=== PATIENT | female | born 1935 | race Caucasian/White ===

== ENCOUNTER 2018-08-19 18:16 | Inpatient (IN) | payer OTHER ==
[~2018-08-19] VITALS: Ht 165.1 cm; Wt 65.6 kg
--- NOTE | ~2018-08-19 | EKG ---
[address] [address] ELECTROCARDIOGRAM REPORT Name: ALANIS MICHAELS Room #: 457- ADM IN M.R.#: [id number] Admission: 08/19/18 Attend Phys: Nabil Linn Discharge: Date of : 33 Report #: [id number] THIS REPORT FOR: //name// [facility] Test Date: 2018-08-23 Test Time: 08:23:39 Pat Name: ALANIS MICHAELS Department: Room: [facility] Gender: F [employer]ing Machine Operator: Nell KEANE : 1935 Requested By: Nabil Linn Order Number: [id number] MD: Toribio Mcmillan Measurements Intervals [place] Rate: 138 P: NE: QRS: -34 QRSD: 136 T: -38 QT: 297 QTc: 450 Interpretive Statements Atrial flutter with 2:1 AV block Left ventricular hypertrophy Nonspecific T abnormalities, inferior leads No previous ECG available for comparison Electronically Signed On 08-23-2018 9:58:01 CDT by Toribio Mcmillan [email or web address] <ELECTRONICALLY SIGNED> By: Toribio Mcmillan MD 1058 2 2 Toribio Mcmillan MD /[email or web address]
--- NOTE | ~2018-08-19 | 2DMMODE ---
[facility] [address] [place] [address] 2 D/M-MODE ECHOCARDIOGRAM Name: XENIAALANIS Casarez Room #: 211-P ADM IN M.R.#: [id number] Admission: 08/19/18 Attend Phys: Nabil Snider Discharge: Date of : 33 Date of Service: 08/24/18 1606 Report #: [id number] THIS REPORT FOR: //name// APPROVED REPORT Study performed: 08/24/2018 15:13:56 EXAM: Comprehensive 2D, Doppler, and color-flow Echocardiogram Patient Location: Echo lab Room #: [facility] Status: routine BSA: 1.68 HR: 80 bpm BP: 109/46 mmHg Rhythm: NSR Other Information Study Quality: Adequate Technically limited study due to inability to position patient/breast implants. Indications Atrial Fibrillation 2D Dimensions RVDd: 30.56 mm IVSd: 12.46 (7-11mm) LVOT Diam: 20.08 (18-24mm) LVDd: 34.78 mm PWd: 12.81 (7-11mm) LVDs: 24.20 (25-40mm) Aortic Root: 34.85 mm Volumes Left Atrial Volume (Systole) Single Plane 4CH: 38.03 mL Single Plane 2CH: 55.88 mL Aortic Valve AoV Peak Deandre.: 1.28 m/s AO Peak Gr.: 6.54 mmHg LVOT Max P.24 mmHg LVOT Max V: 1.03 m/s RUSSELL Vmax: 2.55 cm2 Mitral Valve MV Decel. Time: 250.68 ms MV E Max Deandre.: 1.17 m/s [facility] [address] [employer] [address] [address] 2 D/M-MODE ECHOCARDIOGRAM Name: ALANIS MICHAELS Room #: 211-P [facility] IN [facility].#: [id number] Admission: 08/19/18 Attend Phys: Nabil Snider Discharge: Date of : 33 Date of Service: 08/24/18 1606 Report #: [id number] Pulmonary Valve PV Peak Deandre.: 0.95 m/s PV Peak Gr.: 3.62 mmHg Tricuspid Valve TR Peak Deandre.: 2.98 m/s RAP Estimate: 10.00 mmHg TR Peak Gr.: 35.61 mmHg PA Pressure: 46.00 mmHg Left Ventricle The left ventricle is normal size. There is normal LV segmental wall motion. Mild concentric left ventricular hypertrophy. Left ventricular systolic function is normal. LVEF is 60-65%. This study is not technically sufficient to allow evaluation of the LV diastolic function due to atrial fibrillation. Right Ventricle The right ventricle is normal size. The right ventricular systolic function is normal. Atria Left atrium is dilated. The right atrium size is normal. Aortic Valve The aortic valve is grossly normal in structure. No aortic regurgitation is present. There is no aortic valvular stenosis. Mitral Valve The mitral valve is normal in structure. Moderate mitral annular calcification. Mild to moderate mitral regurgitation. Tricuspid Valve The tricuspid valve is normal in structure. Mild to moderate tricuspid regurgitation. Estimated PA Pis 45-50mmHg. Pulmonic Valve Pulmonic valve is not well visualized. Great Vessels The aortic root is normal in size. Ascending aorta is not well visualized. IVC is borderline dilated and collapses <50% with inspiration. Pericardium There is no pericardial effusion. [facility] [place] [address] 2 D/M-MODE ECHOCARDIOGRAM Name: ALANIS MICHAELS Room #: 211-P [facility] IN M.R.#: [id number] Admission: 08/19/18 Attend Phys: Nabil Snider Discharge: Date of : 33 Date of Service: 08/24/181605 Report #: [id number] <Conclusion> The left ventricle is normal size. LVEF is 60-65%. Left atrium is dilated. The aortic valve is grossly normal in structure. The mitral valve is normal in structure. Moderate mitral annular calcification. Mild to moderate mitral regurgitation. The tricuspid valve is normal in structure. Mild to moderate tricuspid regurgitation. Estimated PA Pis 45-50mmHg. Pulmonic valve is not well visualized. There is no pericardial effusion. <ELECTRONICALLY SIGNED> By: David Caballero MD 08/24/18 1606 05 05 David Caballero MD /INF
--- NOTE | ~2018-08-19 | HC ---
[facility] [address] [place] [address] CONSULTATION Name: ALANIS MICHAELS Room #: 457-P ADM IN M.R.#: [id number] Admission: 08/19/18 Attend Phys: Nabil Linn Discharge: Date of : 33 Report #: [id number] THIS REPORT FOR: //name// CC: Nabil Linn Physician staff Norma Sutherland DATE OF SERVICE: 08/20/2018 CHIEF COMPLAINT: Left proximal humerus fracture. HISTORY OF PRESENT ILLNESS: This frail, but still active and independent 83-year-old female fell injuring the left shoulder. X-rays reveal a complex comminuted 4-part fracture of the proximal humerus, but with only mild impaction and mild fracture deformity. She has no other apparent injuries. At the time of my evaluation, she is alert and oriented and seems to understand the situation well. She denies any other areas of significant discomfort aside from some minor bruising. The left shoulder is notable for discomfort with any attempted range of motion. There is no significant bruising or swelling. The shoulder seems to be in good alignment. She has good movement of the elbow, wrist and hand. Neurologic evaluation is normal. X-rays of the left shoulder reveal a 4-part comminuted proximal humerus fracture with mild impaction, but without significant displacement. I have discussed this at some length with the patient. I have explained that the fracture may remain in position with nonsurgical care and may heal in, in a satisfactory fashion. On the other hand, the fracture may displace and become more unstable, at which point hemiarthroplasty surgical replacement would be most appropriate. We have therefore discussed the option of going ahead with surgery at this time or continue with nonsurgical management. She wants to discuss with her family who are not yet available; however, in general, she prefers to avoid any surgery given her advanced age. She notes her shoulder is not hurting her terribly at this point and she would prefer to simply protect this with arm sling and limited activity. I think this conservative approach is reasonable given her age and current fracture pattern. If at some point, the fracture displaces more significantly, then hemiarthroplasty may be necessary. I will try to discuss the issue with family when they are available, but for now we will continue with nonsurgical care. <ELECTRONICALLY SIGNED> By: Corey Gonzalez MD 08/21/18 0945 1455 [id number] Corey Gonzalez MD /nt
[2018-08-19 18:18] VITALS: BP 138/45
[2018-08-19] MEDS ORDERED: LOSARTAN POTAS100 MG PO (18:24)
[2018-08-19] MEDS ORDERED: DILTIAZEM 24HR180 M1 PO (18:24)
[2018-08-19] MEDS ORDERED: ACETAMINOPHEN-1 EAC1 PO (18:53)
[2018-08-19 20:58] VITALS: BP 127/44
[2018-08-19 21:29] VITALS: BP 119/68
[2018-08-19 23:58] LABS: HEMATOCRIT 36.3 % (37.0-47.0); HEMOGLOBIN 12.3 gm/dL (12.0-15.0); MCH 29.1 pg (26.0-34.0); MCV 85.7 fL (80.0-100.0); RBC 4.23 mil/uL (4.20-5.00); RDW 15.4 % (10.5-14.5); WBC 9.2 thou/uL (4.0-11.0)
[2018-08-20 00:02] LABS: CALCIUM 9.2 mg/dL (8.5-10.1); CREATININE 0.7 mg/dL (0.6-1.0); POTASSIUM 4.2 mmol/L (3.5-5.1)
[2018-08-20] MEDS ORDERED: XARELTO20 MG PO (01:09)
[2018-08-20 04:07] VITALS: BP 120/36
[2018-08-20 05:16] LABS: URINE BILIRUBIN NEGATIVE (Negative); URINE BLOOD NEGATIVE (Negative); URINE CLARITY CLEAR; URINE COLOR YELLOW; URINE GLUCOSE-RANDOM* NEGATIVE (Negative); URINE KETONES NEGATIVE (Negative); URINE LEUKOCYTES-REFLEX NEGATIVE (Negative); URINE NITRITE-REFLEX NEGATIVE (Negative); URINE PROTEIN (DIPSTICK) TRACE (Negative); URINE SPECIFIC GRAVITY 1.025 (1.005-1.035); URINE UROBILINOGEN 0.2 E.U./dl (0.2-1.0)
[2018-08-20 08:00] VITALS: BP 124/52
[2018-08-20 19:23] VITALS: BP 137/66
[2018-08-21 05:59] LABS: ALBUMIN 3.1 g/dL (3.4-5.0); CALCIUM 9.2 mg/dL (8.5-10.1); CREATININE 0.6 mg/dL (0.6-1.0); PHOSPHORUS 3.4 mg/dL (2.5-4.9); POTASSIUM 4.1 mmol/L (3.5-5.1)
[2018-08-21 08:00] VITALS: BP 141/56
[2018-08-21 19:07] VITALS: BP 120/40
[2018-08-22 05:45] LABS: CREATININE 0.6 mg/dL (0.6-1.0); PHOSPHORUS 3.1 mg/dL (2.5-4.9); POTASSIUM 3.8 mmol/L (3.5-5.1)
[2018-08-22 08:00] VITALS: BP 152/66
[2018-08-22 14:25] LABS: CALCIUM 8.7 mg/dL (8.5-10.1); CREATININE 0.7 mg/dL (0.6-1.0); POTASSIUM 3.7 mmol/L (3.5-5.1)
[2018-08-22 19:14] VITALS: BP 129/52
[2018-08-23 06:01] LABS: ALBUMIN 2.7 g/dL (3.4-5.0); CALCIUM 8.9 mg/dL (8.5-10.1); CREATININE 0.6 mg/dL (0.6-1.0); PHOSPHORUS 3.6 mg/dL (2.5-4.9)
[2018-08-23 07:26] VITALS: BP 140/63
[2018-08-23 09:55] LABS: CALCIUM 8.8 mg/dL (8.5-10.1); CREATININE 0.6 mg/dL (0.6-1.0); POTASSIUM 3.7 mmol/L (3.5-5.1)
[2018-08-23 15:44] VITALS: BP 93/35
[2018-08-23 20:11] VITALS: BP 95/42
[2018-08-23 23:33] VITALS: BP 107/49
[2018-08-24 03:38] VITALS: BP 110/40
[2018-08-24 06:28] LABS: ALBUMIN 2.6 g/dL (3.4-5.0); CALCIUM 9.1 mg/dL (8.5-10.1); CREATININE 0.6 mg/dL (0.6-1.0); PHOSPHORUS 3.7 mg/dL (2.5-4.9); POTASSIUM 4.2 mmol/L (3.5-5.1)
[2018-08-24 08:00] VITALS: BP 112/46
[2018-08-24 11:14] VITALS: BP 109/46
[2018-08-24 14:15] LABS: ALBUMIN 2.5 g/dL (3.4-5.0); CALCIUM 8.7 mg/dL (8.5-10.1); CREATININE 0.8 mg/dL (0.6-1.0); PHOSPHORUS 3.7 mg/dL (2.5-4.9); POTASSIUM 4.1 mmol/L (3.5-5.1)
[2018-08-24 15:58] VITALS: BP 112/43
[2018-08-25] VITALS (8 sets, daily range): BP systolic 122–148; BP diastolic 42–72
[2018-08-25 03:57] LABS: ALBUMIN 2.6 g/dL (3.4-5.0); CALCIUM 8.8 mg/dL (8.5-10.1); CREATININE 0.5 mg/dL (0.6-1.0); PHOSPHORUS 4.1 mg/dL (2.5-4.9); POTASSIUM 4.3 mmol/L (3.5-5.1)
[2018-08-26 03:00] VITALS: BP 142/78
[2018-08-26 04:10] VITALS: BP 148/79
[2018-08-26 04:52] VITALS: BP 148/79
[2018-08-26] MEDS ORDERED: METOPROLOL SUCC25 M1 PO (07:45)
[2018-08-26] MEDS ORDERED: CARDIZEM CD240 MG PO (07:46)
[2018-08-26] MEDS ORDERED: ACETAMINOPHEN325 M1 PO (07:46)
[2018-08-26] MEDS ORDERED: METOPROLOL SUCC50 MG PO (08:30)
[2018-08-26] MEDS ORDERED: CARDIZEM CD120 MG PO (08:30)
[2018-08-26 08:32] VITALS: BP 135/68
[2018-08-26 10:00] LABS: CALCIUM 9.1 mg/dL (8.5-10.1); CREATININE 0.6 mg/dL (0.6-1.0); POTASSIUM 4.3 mmol/L (3.5-5.1)
[2018-08-26 11:23] VITALS: BP 144/70
[2018-08-26 16:23] VITALS: BP 129/56
== END 2018-08-26 17:38 | DRG 542 ==
LOC: ER 18:16 → EROBS 20:36 → 4W 20:36 → 2N 20:36 → 4W 21:07 → 2N 08-24 11:08
PROVIDERS: Hospitalist; Nurse Practitioner Acute Care
PROC: 2W39X1Z Immobilization of Left Upper Extremity using Splint (ICD-10-PCS; principal; 2018-08-19)
DX: M80.022A Age-related osteoporosis with current pathological fracture, left humerus, initial encounter for fracture (principal); E43 Unspecified severe protein-calorie malnutrition; S42.202A Unspecified fracture of upper end of left humerus, initial encounter for closed fracture; E87.1 Hypo-osmolality and hyponatremia; I48.92 Unspecified atrial flutter; I48.91 Unspecified atrial fibrillation; E86.1 Hypovolemia; I10 Essential (primary) hypertension; Z85.3 Personal history of malignant neoplasm of breast; Z90.13 Acquired absence of bilateral breasts and nipples; Z87.891 Personal history of nicotine dependence; W01.0XXA Fall on same level from slipping, tripping and stumbling without subsequent striking against object, initial encounter; Y93.01 Activity, walking, marching and hiking; Y92.89 Other specified places as the place of occurrence of the external cause; Y99.8 Other external cause status; Z72.89 Other problems related to lifestyle; Z23 Encounter for immunization
CPT/HCPCS: 10040; 10045; 10081